=== PATIENT | female | born 1980 | race Caucasian/White ===

== ENCOUNTER 2024-04-02 15:00 | Inpatient (IN) | payer OTHER ==
[~2024-04-02] VITALS: Ht 152.4 cm; Wt 66.2 kg
[~2024-04-02 15:00] MED LIST: DICYCLOMINE HCL20 MG PO; ONDANSETRON ODT4 MG PO; PANTOPRAZOLE SO40 MG PO; ULTRAM 50MG50 MG PO
[2024-04-02 15:48] LABS: BASOPHILS % 0.3 % (0.0-1.0); EOSINOPHILS # (AUTO) 0.1 (0.0-0.4); EOSINOPHILS % 0.9 % (0.0-6.0); HEMATOCRIT 38.3 % (34.2-44.1); HEMOGLOBIN 12.1 g/dL (12.0-16.0); LYMPHOCYTES # (AUTO) 2.4 (1.0-3.2); LYMPHOCYTES % 20.6 % (18.0-39.1); MEAN CORPUSCULAR HEMOGLOBIN 28.5 pg (28-32); MEAN CORPUSCULAR HGB CONC 31.6 g/dL (31-35); MEAN CORPUSCULAR VOLUME 90.1 fL (81-99); MONOCYTES # (AUTO) 0.6 (0.2-0.8); MONOCYTES % 5.2 % (4.4-11.3); NEUTROPHILS # (AUTO) 8.5 (2.1-6.9); NEUTROPHILS % 72.8 % (38.7-80.0); PLATELET COUNT 384 x10e3/uL (140-360); RED BLOOD COUNT 4.25 x10e6/uL (3.6-5.1); RED CELL DISTRIBUTION WIDTH 12.4 % (11.7-14.4); WHITE BLOOD COUNT 11.64 x10e3/uL (4.8-10.8)
[2024-04-02 15:55] LABS: INR 0.95; PROTHROMBIN TIME 13.2 seconds (11.9-14.5)
[2024-04-02 15:56] LABS: PARTIAL THROMBOPLASTIN TIME 25.6 seconds (23.8-35.5)
[2024-04-02 16:03] LABS: ALBUMIN 3.7 g/dL (3.5-5.0); ALBUMIN/GLOBULIN RATIO 1.1 (0.8-2.0); ANION GAP 12.7 mmol/L (8-16); BILIRUBIN,TOTAL 0.5 mg/dL (0.2-1.2); CALCIUM 8.7 mg/dL (8.4-10.2); CREATININE, SERUM 0.8 mg/dL (0.57-1.11); POTASSIUM 3.7 mmol/L (3.5-5.1); TOTAL PROTEIN 7.1 g/dL (6.5-8.1)
[2024-04-02] MEDS: ONDANSETRON HCL INJ 2MG/ML 2ML 2 MG/ML VIAL IV STA (16:31)
[2024-04-02] MEDS: SODIUM CHLORIDE 0.9% 1000ML 1,000 ML IV STA (16:31)
[2024-04-02] MEDS: Morphine 4mg INJECTION 4 MG/ML INJ IV STA (16:38)
[2024-04-02] MEDS: SODIUM CHLORIDE 0.9% 1000ML 1,000 ML IV SCH (18:20)
[2024-04-02 18:54] VITALS: PULSE 70; RESP 18; TEMP 97.9
[2024-04-02 20:33] VITALS: BP 117/58; PULSE 102; RESP 20; TEMP 98.6; O2SAT 100
[2024-04-02 20:40] VITALS: BP 117/58; PULSE 102; RESP 20; TEMP 98.6; O2SAT 100
[2024-04-02 21:00] VITALS: BP 117/58; PULSE 102; RESP 20; TEMP 98.6; O2SAT 100
[2024-04-02] MEDS ORDERED: multivitamin PO (22:33)
[2024-04-02] MEDS: Morphine 2mg Syringe 2 MG/ML SYR IV PRN (22:58)
[2024-04-02] MEDS: ONDANSETRON HCL INJ 2MG/ML 2ML 2 MG/ML VIAL IV PRN (22:58)
[2024-04-03] VITALS (9 sets, daily range): BP systolic 100–130; BP diastolic 42–65; PULSE 45–89; RESP 17–20; TEMP 97.6–98.5; O2SAT 99–100
[2024-04-03 05:39] LABS: BASOPHILS % 0.2 % (0.0-1.0); EOSINOPHILS # (AUTO) 0.1 (0.0-0.4); EOSINOPHILS % 0.9 % (0.0-6.0); HEMATOCRIT 32.9 % (34.2-44.1); HEMOGLOBIN 10.1 g/dL (12.0-16.0); LYMPHOCYTES # (AUTO) 3.3 (1.0-3.2); LYMPHOCYTES % 38.3 % (18.0-39.1); MEAN CORPUSCULAR HEMOGLOBIN 28.5 pg (28-32); MEAN CORPUSCULAR HGB CONC 30.7 g/dL (31-35); MEAN CORPUSCULAR VOLUME 92.9 fL (81-99); MONOCYTES # (AUTO) 0.5 (0.2-0.8); MONOCYTES % 5.4 % (4.4-11.3); NEUTROPHILS # (AUTO) 4.7 (2.1-6.9); NEUTROPHILS % 54.8 % (38.7-80.0); PLATELET COUNT 308 x10e3/uL (140-360); RED BLOOD COUNT 3.54 x10e6/uL (3.6-5.1); RED CELL DISTRIBUTION WIDTH 12.4 % (11.7-14.4); WHITE BLOOD COUNT 8.57 x10e3/uL (4.8-10.8)
[2024-04-03 06:04] LABS: ALBUMIN 2.8 g/dL (3.5-5.0); BILIRUBIN,TOTAL 0.4 mg/dL (0.2-1.2); CALCIUM 8.4 mg/dL (8.4-10.2); CREATININE, SERUM 0.75 mg/dL (0.57-1.11); TOTAL PROTEIN 5.5 g/dL (6.5-8.1)
[2024-04-03] MEDS ORDERED: SEVOFLURANE INHAL SOLN 250 ML PEN BTL ONE (12:26)
[2024-04-03] MEDS ORDERED: ROCURONIUM BROMIDE 10 MG/ML 5ML VIAL IV ONE (12:26)
[2024-04-03] MEDS ORDERED: KETOROLAC TROMETHAMINE 30 MG/ML VIAL ONE (12:26)
[2024-04-03] MEDS ORDERED: ONDANSETRON HCL INJ 2MG/ML 2ML 2 MG/ML VIAL ONE (12:26)
[2024-04-03] MEDS ORDERED: METOCLOPRAMIDE HCL 10 MG/2ML VIAL ONE (12:26)
[2024-04-03] MEDS ORDERED: SUCCINYLCHOLINE CHLORIDE 20 MG/ML 10ML VIAL ONE (12:26)
[2024-04-03] MEDS ORDERED: LIDOCAINE HCL 2% LOCAL INJ 5 ML SDV VIAL INJ ONE (12:26)
[2024-04-03] MEDS ORDERED: DEXAMETHASONE SOD PHOS INJ 4 MG/ML SDV ONE (12:26)
[2024-04-03] MEDS ORDERED: PROPOFOL IV EMULSION 10 MG/ML 20 ML VIAL ONE (12:26)
[2024-04-03] MEDS ORDERED: SUGAMMADEX SODIUM 200 MG/2 ML VIAL IV ONE (15:55)
[2024-04-03] MEDS ORDERED: BUPIVACAINE 0.5%/EPI 30 ML SDV INJ ONE (16:40)
[2024-04-03] MEDS ORDERED: HYDROMORPHONE 1MG/1ML INJ IV PRN (18:15)
[2024-04-03] MEDS ORDERED: HYDROCODONE/APAP 7.5MG-325MG 1 EA TAB PO PRN (18:15)
[2024-04-04] VITALS: BP 117/69; PULSE 60; RESP 20; TEMP 97.7; O2SAT 100
[2024-04-04 04:00] VITALS: BP 113/43; PULSE 60; RESP 20; TEMP 97.9; O2SAT 100
[2024-04-04 08:21] VITALS: BP 106/48; PULSE 51; RESP 18; TEMP 97.7; O2SAT 100
[2024-04-04 08:56] VITALS: BP 106/48; PULSE 51; RESP 18; TEMP 97.7; O2SAT 100
[2024-04-04] MEDS: KETOROLAC TROMETHAMINE 30 MG/ML VIAL IV PRN (09:01)
[2024-04-04 11:41] VITALS: BP 109/47; PULSE 55; RESP 18; TEMP 98.1; O2SAT 100
[2024-04-04] MEDS ORDERED: Morphine 10mg syringe 10 MG/ML INJ ONE (13:25)
[2024-04-04] MEDS ORDERED: FENTANYL CITRATE/PF 100MCG/2 ML INJ ONE (13:25)
== END 2024-04-04 13:28 | disposition home health service (06) | DRG 419 ==
LOC: ER 15:18 → ERHOLD 16:46 → MED/SURG3 20:35
PROVIDERS: ADMIT Surgery; ATTEND Surgery
PROC: 0FT44ZZ Resection of Gallbladder, Percutaneous Endoscopic Approach (ICD-10-PCS; principal; 2024-04-03 17:07)
DX: K80.00 Calculus of gallbladder with acute cholecystitis without obstruction (principal); Z98.84 Bariatric surgery status
CPT/HCPCS: 36415; 80053; 81025; 83690; 83735; 85025; 85610; 85730; 88304; 99284; C1766; J0330; J1100; J1885; J2001; J2270; J2405; J2470; J2543; J2765; J7030